=== PATIENT | female | born 1995 | race Caucasian/White ===

== ENCOUNTER 2020-07-19 01:18 | Emergency (ER) | payer OTHER, SELFPAY ==
[2020-07-19 01:21] VITALS: BP 137/92; PULSE 78; RESP 14; TEMP 36.6; O2SAT 100
[2020-07-19] MEDS: SODIUM CHLORIDE 0.9% IV 1,000 ML 999 ML IV CONT (02:03)
--- NOTE | 2020-07-19 02:11 | ED.GENADULT ---
HPI - General Adult General Chief complaint: Abdominal Pain Stated complaint: increased bleeding Time Seen by Provider: 07/19/20 01:49 History of Present Illness HPI narrative: Patient is a 25-year-old female who presents the emergency department with chief complaint of vaginal bleeding. Patient reports that she is less than 5 weeks and had a blood test done by her TOOLING ENGINEER that showed her quantitative test being very low. They did not perform an ultrasound due to her levels being below with a discernible number for ultrasound. The patient states that she has had more bleeding and has passed some clots is going through approximately 1 pad per hour tonight she noticed her cramping was a little worse and she also felt a little lightheaded. The patient reports this is her second and she is Rh+. Related Data Allergies Allergy/AdvReac Type Severity Reaction Status Date / Time metronidazole Allergy Intermediate SEVERE Verified 10/13/18 09:00 VOMITING Review of Systems Review of Systems: Narrative: A 10 system review of systems was completed on the patient and is negative except for what is stated in the HPI. Nursing and ancillary documentation was reviewed. PMFSH Comments Patient has past medical history of 1 prior that was carried to term Social history the patient denies illicit drug use Exam Narrative: Exam Narrative: GENERAL: Well-appearing, well-nourished, and in no acute distress. HEAD: Normocephalic, atraumatic. EYES: PERRLA and EOMI. ENT: Nares clear, no rhinorrhea or epistaxis. Mucous membranes moist. NECK: Supple. CHEST: Clear to auscultation. No respiratory distress. HEART: Regular rate and rhythm. No murmur heard. Normal peripheral pulses. ABDOMEN: Soft, mild tenderness to palpation in the low pelvis area, nondistended, normal active bowel sounds. EXTREMITIES: Normal range of motion. No edema. SKIN: Warm, dry, no rash. NEURO: No focal deficits. Alert and oriented x3. PSYCH: Normal mood and affect. Course Vital Signs Vital signs: Vital Signs Temperature 36.6 C 07/19/20 01:21 Pulse Rate 78 07/19/20 01:21 Respiratory Rate 14 07/19/20 01:21 Blood Pressure 137/92 H 07/19/20 01:21 Pulse Oximetry 100 07/19/20 01:21 Temperature 36.6 C 07/19/20 01:21 Pulse Rate 78 07/19/20 01:21 Respiratory Rate 14 07/19/20 01:21 Blood Pressure 137/92 H 07/19/20 01:21 Pulse Oximetry 100 07/19/20 01:21 Medical Decision Making Vital Signs Vital Signs: Vital Signs Temperature 36.6 C 07/19/20 01:21 Pulse Rate 78 07/19/20 01:21 Respiratory Rate 14 07/19/20 01:21 Blood Pressure 137/92 H 07/19/20 01:21 Pulse Oximetry 100 07/19/20 01:21 Temperature 36.6 C 07/19/20 01:21 Pulse Rate 78 07/19/20 01:21 Respiratory Rate 14 07/19/20 01:21 Blood Pressure 137/92 H 07/19/20 01:21 Pulse Oximetry 100 07/19/20 01:21 Lab Data Result diagrams: 07/19/20 01:55 07/19/20 01:55 Labs: Lab Results 07/19/20 07/19/20 07/19/20 Range/Units 01:55 01:55 01:55 WBC 11.5 H (4.5-10.0) K/mm3 RBC 4.92 (4.2-5.4) M/mm3 Hgb 14.6 (12.0-15.0) g/dL Hct 42.3 (37.0-47.0) % MCV 86.0 (80-100) fl MCH 29.7 (26-34) pg MCHC 34.5 (32-36) g/dl RDW 11.9 (11.5-14.5) % Plt Count 304 (150-375) k/mm3 MPV 9.7 (7.4-10.4) fl Immature Gran % (Auto) 0.4 (0-0.5) % Neut % (Auto) 68.9 (45.5-73.1) % Lymph % (Auto) 22.4 (18.3-44.2) % [place] % (Auto) 7.1 (2.6-8.5) % Eos % (Auto) 0.9 (0-4.4) % Baso % (Auto) 0.3 (0.2-1.2) % Lymph # (Auto) 2.57 (0.9-3.2) K/mm3 [place] # (Auto) 0.8 H (0.1-0.6) K/mm3 Eos # (Auto) 0.1 (0-0.3) K/mm3 Baso # (Auto) 0.0 (0.0-0.1) K/mm3 Abs Immat Gran (auto) 0.05 H (0.00-0.031) K/mm3 Absolute Neuts (auto) 7.9 H (1.3-6.7) K/mm3 Absolute Nucleated RBC 0.0 (0.0-0.012) K/mm3 Nucleated RBC %
[2020-07-19 02:12] LABS: Basophils Percent Auto 0.3 % (0.2-1.2); Eosinophils Absolute Auto 0.1 K/mm3 (0-0.3); Eosinophils Percent Auto 0.9 % (0-4.4); Hematocrit 42.3 % (37.0-47.0); Hemoglobin 14.6 g/dL (12.0-15.0); Immature Granulocyte Absolute 0.05 K/mm3 (0.00-0.031); Immature Granulocyte Percent A 0.4 % (0-0.5); Lymphocytes Absolute Auto 2.57 K/mm3 (0.9-3.2); Lymphocytes Percent Auto 22.4 % (18.3-44.2); Mean Corpuscular HGB Conc 34.5 g/dl (32-36); Mean Corpuscular Hemoglobin 29.7 pg (26-34); Mean Platelet Volume 9.7 fl (7.4-10.4); Monocytes Absolute Auto 0.8 K/mm3 (0.1-0.6); Monocytes Percent Auto 7.1 % (2.6-8.5); Neutrophils Absolute Auto 7.9 K/mm3 (1.3-6.7); Neutrophils Percent Auto 68.9 % (45.5-73.1); Platelet Count Result 304 k/mm3 (150-375); Red Blood Count 4.92 M/mm3 (4.2-5.4); Red Cell Distribution Width 11.9 % (11.5-14.5); White Blood Count 11.5 K/mm3 (4.5-10.0)
[2020-07-19 02:15] LABS: Alanine Aminotransferase 22 U/L (4-35); Albumin Level 4.4 g/dL (3.5-5.1); Alkaline Phosphatase 61 U/L (38-126); Anion Gap 9 mmol/L (8-16); Aspartate Amino Transferase 27 U/L (14-36); Bilirubin,Total 0.3 mg/dL (0.2-1.3); Blood Urea Nitrogen 8 mg/dL (7-17); Calcium 8.9 mg/dL (8.4-10.2); Carbon Dioxide 30 mmol/L (22-30); Chloride 100 mmol/L (98-107); Estimated CRCL calculation 85 ml/min; Estimated Glomerular Filt Rate > 60; Glucose 108 mg/dL (65-105); Potassium 3.7 mmol/L (3.4-5.0); Sodium 139 mmol/L (137-145)
[2020-07-19 02:31] LABS: Beta HCG Quantitative 10.28 mIU/ML
[2020-07-19 03:12] VITALS: BP 129/86; PULSE 73; RESP 16; O2SAT 100
== END 2020-07-19 03:45 | disposition home or self-care (01) ==
PROVIDERS: Emergency Provider Emergency Medicine
DX: O20.0 Threatened abortion (principal); Z3A.01 Less than 8 weeks gestation of pregnancy
CPT/HCPCS: 36415; 80053; 84702; 85025; 85461; 96360; 99283; J7030

== ENCOUNTER 2020-07-25 12:37 | Outpatient (RCR) | payer OTHER, SELFPAY ==
[2020-07-17 12:56] LABS: Beta HCG Quantitative 21.23 mIU/ML
[2020-07-25 13:53] LABS: Beta HCG Quantitative < 2.39 mIU/ML
== END 2020-10-15 23:59 | disposition home or self-care (01) ==
LOC: ANHLAB 12:37
PROVIDERS: Visit Provider Obstetrics & Gynecology
DX: O20.0 Threatened abortion (principal); Z3A.00 Weeks of gestation of pregnancy not specified
CPT/HCPCS: 36415; 84702

== ENCOUNTER 2021-01-24 16:36 | Outpatient (CLI) | payer OTHER, SELFPAY ==
[2021-01-24 17:07] LABS: Basophils Absolute Auto 0.1 K/mm3 (0.0-0.1); Basophils Percent Auto 0.5 % (0.2-1.2); Eosinophils Absolute Auto 0.1 K/mm3 (0-0.3); Eosinophils Percent Auto 0.6 % (0-4.4); Hematocrit 40.8 % (37.0-47.0); Hemoglobin 13.6 g/dL (12.0-15.0); Immature Granulocyte Absolute 0.07 K/mm3 (0.00-0.031); Immature Granulocyte Percent A 0.6 % (0-0.5); Lymphocytes Absolute Auto 2.99 K/mm3 (0.9-3.2); Lymphocytes Percent Auto 27.7 % (18.3-44.2); Mean Corpuscular HGB Conc 33.3 g/dl (32-36); Mean Corpuscular Hemoglobin 28.8 pg (26-34); Mean Corpuscular Volume 86.3 fl (80-100); Monocytes Absolute Auto 0.6 K/mm3 (0.1-0.6); Monocytes Percent Auto 5.9 % (2.6-8.5); Neutrophils Percent Auto 64.7 % (45.5-73.1); Platelet Count Result 282 k/mm3 (150-375); Red Blood Count 4.73 M/mm3 (4.2-5.4); White Blood Count 10.8 K/mm3 (4.5-10.0)
[2021-01-24 17:18] LABS: Alanine Aminotransferase 12 U/L (4-35); Albumin Level 4.6 g/dL (3.5-5.1); Alkaline Phosphatase 66 U/L (38-126); Anion Gap 8 mmol/L (8-16); Aspartate Amino Transferase 21 U/L (14-36); Bilirubin,Total 0.4 mg/dL (0.2-1.3); Blood Urea Nitrogen 12 mg/dL (7-17); Carbon Dioxide 28 mmol/L (22-30); Chloride 102 mmol/L (98-107); Estimated Glomerular Filt Rate > 60; Glucose 85 mg/dL (65-105); Potassium 3.6 mmol/L (3.4-5.0); Sodium 138 mmol/L (137-145)
[2021-01-24 17:47] LABS: Erythrocyte Sedimentation Rate 12 mm/hr (0-20)
[2021-01-24 17:48] LABS: Thyroid Stimulating Hormone 0.905 uIU/mL (0.465-4.680)
[2021-01-24 18:20] LABS: Vitamin D 25 Hydroxy 37.8 ng/mL
[2021-01-24 18:23] LABS: Folic Acid 14.3 ng/mL (2.76->20)
== END 2021-01-24 16:37 | disposition home or self-care (01) ==
LOC: ANHLAB 16:38
PROVIDERS: PCP Family Medicine; Visit Provider Family Medicine
DX: R53.83 Other fatigue (principal)
CPT/HCPCS: 36415; 80053; 82306; 82607; 82746; 84443; 85025; 85652; 86038

== ENCOUNTER 2022-01-09 15:25 | Outpatient (CLI) | payer OTHER, SELFPAY ==
--- NOTE | ~2022-01-09 | US_ITS ---
EXAMINATION: US renal BI DATE: 01/09/2022 15:46 INDICATION: FLANK PAIN TECHNIQUE: Multiple grayscale and Doppler ultrasound images of the kidneys were obtained. COMPARISON: CT abdomen pelvis 01/01/2018. FINDINGS: The right kidney measures 10.8 x 4.7 x 4.2 cm. The left kidney measures 10.5 x 5.0 x 5.1 cm. The kidn eys demonstrate normal parenchymal echogenicity.No sonographic evidence of nephrolithiasis. No mass. No hydronephrosis. The bladder is nondistended. IMPRESSION: 1. Normal renal sonogram findings. Reviewed, dictated and finalized at location K.
== END 2022-01-09 15:26 | disposition home or self-care (01) ==
PROVIDERS: PCP Family Medicine; Visit Provider Advanced Practice Midwife
DX: R10.9 Unspecified abdominal pain (principal)
CPT/HCPCS: 76775

== ENCOUNTER 2022-01-28 05:16 | Emergency (ER) | payer OTHER, SELFPAY ==
[2022-01-28 05:18] VITALS: BP 130/82; PULSE 82; RESP 16; TEMP 36.2; O2SAT 100
[2022-01-28 05:28] VITALS: BP 139/87; PULSE 85; RESP 16; O2SAT 100
[2022-01-28] MEDS: diphenhydrAMINE HCl INJ 50 MG/ML VIAL 25 MG IV PUSH (05:34)
[2022-01-28] MEDS: PYRIDOXINE HCL 100 MG/ML VIAL (*SPC) 50 MG IV PUSH (05:35)
[2022-01-28] MEDS: DEXTROSE 5%/LACTATED RINGERS 1,000 ML 999 ML IV CONT (05:35)
[2022-01-28 05:39] LABS: Basophils Absolute Auto 0.1 K/mm3 (0.0-0.1); Basophils Percent Auto 0.4 % (0.2-1.2); Eosinophils Absolute Auto 0.1 K/mm3 (0-0.3); Eosinophils Percent Auto 0.4 % (0-4.4); Hemoglobin 13.8 g/dL (12.0-15.0); Immature Granulocyte Absolute 0.09 K/mm3 (0.00-0.031); Immature Granulocyte Percent A 0.7 % (0-0.5); Lymphocytes Absolute Auto 2.37 K/mm3 (0.9-3.2); Lymphocytes Percent Auto 17.7 % (18.3-44.2); Mean Corpuscular HGB Conc 34.5 g/dl (32-36); Mean Corpuscular Hemoglobin 29.5 pg (26-34); Mean Corpuscular Volume 85.5 fl (80-100); Mean Platelet Volume 10.3 fl (7.4-10.4); Monocytes Absolute Auto 1.2 K/mm3 (0.1-0.6); Neutrophils Absolute Auto 9.6 K/mm3 (1.3-6.7); Neutrophils Percent Auto 71.8 % (45.5-73.1); Platelet Count Result 278 k/mm3 (150-375); Red Blood Count 4.68 M/mm3 (4.2-5.4); Red Cell Distribution Width 12.9 % (11.5-14.5); White Blood Count 13.4 K/mm3 (4.5-10.0)
[2022-01-28 05:40] LABS: Appearance Urine Clear (Clear); Bilirubin Urine 1+ (Negative); Blood Urine Trace-lysed (Negative); Color Urine Yellow (Yellow); Glucose Urine UA Negative (Negative); Ketones Urine Negative (Negative); Leukocyte Esterase Ur 3+ LEU/UL (Negative); Nitrate Urine Negative (Negative); Protein Urine Trace mg/dL (Negative); Specific Grav Ur 1.025 (1.001-1.035); Urobilinogen Urine 0.2 mg/dL (<2.0)
[2022-01-28 05:44] LABS: Add Urine Microscopic? YES; Bacteria Urine Trace /hpf; Mucus Urine Moderate /lpf; Squamous Epithelial Cell Urine Many /hpf (Few); WBC Urine 31-50 /hpf
[2022-01-28 05:50] LABS: Alanine Aminotransferase 26 U/L (6-35); Albumin Level 4.4 g/dL (3.5-5.1); Alkaline Phosphatase 60 U/L (38-126); Anion Gap 6 mmol/L (8-16); Aspartate Amino Transferase 17 U/L (14-36); Bilirubin,Total 0.2 mg/dL (0.2-1.3); Blood Urea Nitrogen 8 mg/dL (7-17); Calcium 8.6 mg/dL (8.4-10.2); Carbon Dioxide 24 mmol/L (22-30); Chloride 104 mmol/L (98-107); Estimated CRCL calculation 97 ml/min; Estimated Glomerular Filt Rate > 60; Glucose 110 mg/dL (65-110); Lipase 79 U/L (23-300); Potassium 3.6 mmol/L (3.4-5.0); Sodium 134 mmol/L (137-145)
--- NOTE | 2022-01-28 05:59 | ED.NAVMDI ---
HPI - Nausea/Vomiting/Diarrhea General Chief complaint: Nausea/Vomiting/Diarrhea <Soren Velazquez MD - Last Filed: 01/28/22 19:00> Stated complaint: 8 weeks preg, N/V and cramping <Soren Velazquez MD - Last Filed: 01/28/22 19:00> Time Seen by Provider: 01/28/22 05:22 <Soren Velazquez MD - Last Filed: 01/28/22 19:00> Source: patient <Soren Velazquez MD - Last Filed: 01/28/22 19:00> History of Present Illness HPI Narrative: Patient is G3, P1 early miscarriage presents with nausea vomiting cramping and back pain. For she is having cramping back pain throughout her she feels like her abdominal cramping slightly worse but feels its related to her vomiting. Reports has had nausea and vomiting over the past 48 hours and has had a difficult time keeping fluids down. She has not attempted any medications but since her symptoms were not improving she came to the ER for further evaluation. She denies any major changes in weight she denies any vaginal bleeding she denies any lightheaded dizziness she denies any urinary symptoms. She has any chest pain fevers or known sick contacts denies any recent travel outside the area. Emesis is not dark and is without blood <Soren Velazquez MD - Last Filed: 01/28/22 19:00> Related Data Allergies/Adverse reactions: Allergies Allergy/AdvReac Type Severity Reaction Status Date / Time metronidazole Allergy Intermediate SEVERE Verified 01/28/22 05:31 VOMITING <Soren Velazquez MD - Last Filed: 01/28/22 19:00> Review of Systems Review of Systems: CONSTITUTIONAL: Denies fever, chills, or sweats. EYES: Denies visual changes, redness, or discharge. ENT: Denies rhinorrhea, congestion, sore throat, or otalgia. CARDIOVASCULAR: Denies chest pain, palpitations, or edema. RESPIRATORY: Denies cough or dyspnea. GASTROINTESTINAL: Nausea vomiting abdominal pain GENITOURINARY: Denies dysuria or hematuria. SKIN: Denies rash or itching. MUSCULOSKELETAL: Denies back pain, joint pain, or myalgia. NEUROLOGIC: Denies headache, numbness, dizziness, or weakness. PSYCHIATRIC: Denies anxiety or depression. <Soren Velazquez MD - Last Filed: 01/28/22 19:00> All systems reviewed & are unremarkable except as noted in HPI and below <Soren Velazquez MD - Last Filed: 01/28/22 19:00> Exam Narrative: GENERAL: Well-appearing, well-nourished, and in no acute distress. HEAD: Normocephalic, atraumatic. EYES: PERRLA and EOMI. ENT: Nares clear, no rhinorrhea or epistaxis. Mucous membranes moist. NECK: Supple. No masses. No JVD ABDOMEN: Minimal pain with deep palpation of lower abdomen no rebound or guarding soft, nondistended EXTREMITIES: Normal range of motion. No edema. SKIN: Warm, dry, no rash. NEURO: No focal deficits. Alert and oriented x3. PSYCH: Normal mood and affect. <Soren Velazquez MD - Last Filed: 01/28/22 19:00> Course Reevaluation(s) Reevaluation #1: On reevaluation patient had repeat episode of emesis ordered additional antiemetics and patient was signed out to Dr. Gilmore pending reevaluation <Soren Velazquez MD - Last Filed: 01/28/22 19:00> Date: 01/28/22 <Soren Velazquez MD - Last Filed: 01/28/22 19:00> Time: 07:25 <Soren Velazquez MD - Last Filed: 01/28/22 19:00> Consultations Consultation #1: Patient signed out to <Soren Velazquez MD - Last Filed: 01/28/22 19:00> Vital Signs Vital signs: Vital Signs Temperature 36.2 C L 01/28/22 05:18 Pulse Rate 82 01/28/22 05:18 Respiratory Rate 16 01/28/22 05:18 Blood Pressure 130/82 01/28/22 05:18 Pulse Oximetry 100 01/28/22 05:18 Oxygen Delivery Room Air 01/28/22 05:18 Temperature 36.2 C L 01/28/22 05:18 Pulse Rate 88 01/28/22 08:13 Respiratory Rate 18 01/28/22 08:13 Blood Pressure 126/77 01/28/22 08:13 Pulse Oximetry 99 01/28/22 08:13 Oxygen Delivery Room Air 01/28/22 05:18 <Soren Velazquez MD - Last Filed: 01/18
[2022-01-28] MEDS: CEPHALEXIN 500 MG CAPSULE PO (07:02)
[2022-01-28] MEDS: METOCLOPRAMIDE HCL INJ 10 MG/2 ML VIAL IV PUSH (07:07)
[2022-01-28 07:11] VITALS: BP 124/81; PULSE 92; RESP 16; O2SAT 100
--- NOTE | 2022-01-28 07:35 | PC.NURSE ---
Pt resting comfortably. Nausea has resolved with Reglan. Fluids infusing. No requests.
--- NOTE | 2022-01-28 07:38 | PC.NURSE ---
Report from Anjum PEARL. Pt stable resting comfortably.
[2022-01-28 07:40] VITALS: BP 124/81; PULSE 66; O2SAT 100
[2022-01-28 08:13] VITALS: BP 126/77; PULSE 88; RESP 18; O2SAT 99
== END 2022-01-28 09:40 | disposition home or self-care (01) ==
PROVIDERS: Emergency Medicine; Emergency Provider Emergency Medicine; PCP Family Medicine
DX: O23.41 Unspecified infection of urinary tract in pregnancy, first trimester (principal); O21.9 Vomiting of pregnancy, unspecified; Z3A.08 8 weeks gestation of pregnancy
CPT/HCPCS: 36415; 80053; 81001; 83690; 85025; 87086; 87088; 96361; 96374; 96375; 99284; A9270; J1200; J2765; J3415; J7121

== ENCOUNTER 2022-03-06 15:17 | Emergency (ER) | payer OTHER, SELFPAY ==
[2022-03-06] VITALS (18 sets, daily range): BP systolic 119–143; BP diastolic 67–92; PULSE 74–125; RESP 14–25; TEMP 36.8; O2SAT 98–100
--- NOTE | ~2022-03-06 | NM_ITS ---
EXAMINATION: NM pulmonary perfusion DATE: 03/06/2022 19:04 INDICATION: Shortness of breath. TECHNIQUE: 4.2 mCi Tc-99m MAA was administered intravenously for perfusion images. Scintigraphic onesimo ges of the chest were obtained. COMPARISON: Chest single view 03/06/2022 FINDINGS: Perfusion images show no defects. IMPRESSION: 1. Normal perfusion. Pulmonary embolism absent. Reviewed, dictated and finalized at location A.
--- NOTE | ~2022-03-06 | CT_ITS ---
EXAMINATION: CT brain wo con DATE: 03/06/2022 17:46 INDICATION: Headache. Syncope. TECHNIQUE: Computed tomography (CT) of the head was performed without intravenous contrast. The mA wa s adjusted according to patient size. Iterative reconstruction technique was employed. The dose-lengt h product was 605.33 mGy-cm. COMPARISON: Head CT 06/06/2016 FINDINGS: There is no intracranial hemorrhage, acute infarction, or abnormal intracranial mass lesion . The ventricles are normal in size. The orbits are normal. The paranasal sinuses are clear. The mast oid air cells are normal. IMPRESSION: 1. Normal brain. Reviewed, dictated and finalized at location A. IMPRESSION: 1. Normal brain.
--- NOTE | ~2022-03-06 | XR_ITS ---
EXAMINATION: XR chest 1V portable INDICATION: Transient alteration of awareness TECHNIQUE: Portable AP chest at 1708 hours COMPARISON: 07/01/2016 FINDINGS: The lungs are free of acute opacities. No pleural effusion or pneumothorax. The cardiomedia stinal silhouette is normal. The visualized bones and soft tissues are unremarkable. IMPRESSION: 1. No acute cardiopulmonary abnormality. Reviewed, dictated and finalized at location A.
--- NOTE | 2022-03-06 15:18 | ECG_ITS ---
Measurements Intervals [place] Rate: 75 P: 60 [place]: 125 QRS: 72 QRSD: 78 T: 57 QT: 373 QTc: 418 Interpretive Statements SINUS RHYTHM NORMAL ECG NO PREVIOUS ECG AVAILABLE FOR COMPARISON Electronically Signed On 03-07-2022 9:32:52 CDT by Silvano Caldwell M.D.
[2022-03-06 15:40] LABS: Basophils Percent Auto 0.3 % (0.2-1.2); Eosinophils Absolute Auto 0.1 K/mm3 (0-0.3); Eosinophils Percent Auto 0.6 % (0-4.4); Hematocrit 37.1 % (37.0-47.0); Immature Granulocyte Percent A 0.8 % (0-0.5); Lymphocytes Absolute Auto 2.67 K/mm3 (0.9-3.2); Lymphocytes Percent Auto 20.4 % (18.3-44.2); Mean Corpuscular Hemoglobin 29.8 pg (26-34); Mean Corpuscular Volume 85.1 fl (80-100); Mean Platelet Volume 10.5 fl (7.4-10.4); Monocytes Absolute Auto 0.8 K/mm3 (0.1-0.6); Neutrophils Absolute Auto 9.4 K/mm3 (1.3-6.7); Neutrophils Percent Auto 71.9 % (45.5-73.1); Platelet Count Result 270 k/mm3 (150-375); Red Blood Count 4.36 M/mm3 (4.2-5.4); Red Cell Distribution Width 12.3 % (11.5-14.5); White Blood Count 13.1 K/mm3 (4.5-10.0)
[2022-03-06 15:51] LABS: Alanine Aminotransferase 13 U/L (6-35); Albumin Level 3.9 g/dL (3.5-5.1); Alkaline Phosphatase 53 U/L (38-126); Anion Gap 8 mmol/L (8-16); Aspartate Amino Transferase 17 U/L (14-36); Bilirubin,Total 0.2 mg/dL (0.2-1.3); Blood Urea Nitrogen 8 mg/dL (7-17); Calcium 8.4 mg/dL (8.4-10.2); Carbon Dioxide 28 mmol/L (22-30); Chloride 99 mmol/L (98-107); Estimated CRCL calculation 114 ml/min; Estimated Glomerular Filt Rate > 60; Glucose 86 mg/dL (65-110); Potassium 3.7 mmol/L (3.4-5.0); Sodium 135 mmol/L (137-145)
[2022-03-06 17:14] LABS: Magnesium 1.6 mg/dL (1.6-2.3)
[2022-03-06 17:23] LABS: Appearance Urine Cloudy (Clear); Bilirubin Urine Negative (Negative); Blood Urine Negative (Negative); Color Urine Yellow (Yellow); Glucose Urine UA Negative (Negative); Ketones Urine Negative (Negative); Leukocyte Esterase Ur 1+ LEU/UL (Negative); Nitrate Urine Negative (Negative); Protein Urine Negative (Negative); Urobilinogen Urine 0.2 mg/dL (<2.0)
[2022-03-06 17:24] LABS: Troponin I < 0.012 ng/mL (0.000-0.034)
--- NOTE | 2022-03-06 17:26 | ED.SYNCOPE ---
HPI - Syncope General Chief Complaint: Syncope Stated Complaint: syncopal x 2 13 weeks preg Time Seen by Provider: 03/06/22 16:34 Source: patient and RN notes reviewed Mode of arrival: ambulatory Limitations: no limitations History of Present Illness HPI narrative: This is a 26 year old female approximately 13 weeks GA who present for evaluation of syncopal episode. She states today she stood up and she walked to the bathroom. She developed dizziness while walking, and she reports heart was pounding in her chest. She states she frequently feels like lightheaded with heart pounding when getting up and walking. She states today she passed out during this episode. She denies chest pain, abdominal pain, vaginal bleeding. She reports chronic nausea with this so she is not eating much. she has been trying to increase her fluid intake under her OBGYN Dr. Piña's instruction. She also states 2 months ago she was sitting at her desk when she felt hot all over and became lightheaded and passed out. She denies recent vomiting or diarrhea. She denies family history of syncope. She reports headache after passing out today. Related Data Allergies Allergy/AdvReac Type Severity Reaction Status Date / Time metronidazole Allergy Intermediate SEVERE Verified 03/06/22 15:37 VOMITING Review of Systems Review of Systems: All systems reviewed & are unremarkable except as noted in HPI and below Constitutional: Constitutional: Denies chills, Denies fatigue, Denies fever(s) and Denies weakness Cardiovascular: Cardiovascular: Denies chest pain, Reports rapid heart rate and Denies radiating jaw, neck or arm pain Respiratory: Respiratory: Denies chest congestion, Denies cough and Denies dyspnea Gastrointestinal: Gastrointestinal: Denies abdominal pain, Reports nausea and Denies vomiting Genitourinary: Genitourinary: Denies abnormal vaginal bleeding and Denies pelvic pain Musculoskeletal: Musculoskeletal: Denies back pain and Denies myalgias Neurologic: Reports syncope and Reports headache(s) [facility]LY [facility], [facility] Past Medical History Medical History (Updated 03/06/22 @ 21:15 by Jenna Cheney MD) Depression Surgical History Surgical History (Updated 03/06/22 @ 17:35 by Jenna Cheney MD) No pertinent past surgical history Social History Social History (Updated 03/06/22 @ 17:35 by Jenna Cheney MD) Smoking status: Never smoker Exam Narrative: GENERAL: Well-appearing, well-nourished, and in no acute distress. HEAD: Normocephalic, atraumatic EYES: PERRLA and EOMI, conjunctiva clear without discharge EARS: TM's clear bilaterally without erythema or dullness NOSE: Nares clear, no rhinorrhea or epistaxis THROAT:Mucous membranes moist, Oropharynx normal without erythema, exudate, peritonsillar swelling or fluctuance NECK: Supple, without lymphadenopathy or mass RESPIRATORY: No respiratory distress, Airway patent, Respirations non-labored, Clear to auscultation without rales, rhonchi or wheeze HEART: Regular rate and rhythm. No murmur heard. Normal peripheral pulses. ABDOMEN: Soft, nontender, nondistended, normal active bowel sounds. No masses. No rebound or guarding, No organomegaly. EXTREMITIES: No edema, normal strength with full range of motion. SKIN: Warm, dry, normal color without rash NEURO: Alert and oriented x3. CN 2-12 grossly intact. No focal deficits. PSYCH: Normal mood and affect. Course Reevaluation(s) Reevaluation #1: Patient presented with syncopal episode that at this time does not seem to be due to an arrythmia. No PE. She does have some signs of dehydration. Bedside US shows good movement and Heartones 150s. She will be follow up with OBGYN Date: 03/06/22 Time: 21:11 Reevaluation #2: I called patient due to abnormal ua. Culture has been sent. Patient states she is on antibiotics so she will continue those and follow up with OB Date: 03/06/22 Time: 22:29 Vital Si
[2022-03-06 17:27] LABS: Bacteria Urine Trace /hpf; Mucus Urine Rare /lpf; RBC Urine 0-2 /hpf (0-2); Squamous Epithelial Cell Urine Many /hpf (Few)
[2022-03-06 17:28] LABS: Add Urine Microscopic? YES
[2022-03-06] MEDS: LACTATED RINGERS 1,000 ML 999 ML IV CONT ×2 (17:28→20:00)
== END 2022-03-06 21:39 | disposition home or self-care (01) ==
PROVIDERS: Emergency Medicine; Emergency Provider General Practice; PCP Obstetrics & Gynecology
DX: O26.891 Other specified pregnancy related conditions, first trimester (principal); R55 Syncope and collapse; O99.281 Endocrine, nutritional and metabolic diseases complicating pregnancy, first trimester; E86.0 Dehydration; Z3A.13 13 weeks gestation of pregnancy
CPT/HCPCS: 36415; 70450; 71045; 78580; 80053; 81001; 83735; 84484; 85025; 87086; 93005; 96360; 96361; 99284; A9540; J7120

== ENCOUNTER 2022-03-14 10:47 | Outpatient (CLI) | payer OTHER, SELFPAY ==
--- NOTE | 2022-03-18 16:00 | WPDHOLTEREM ---
Holter/Event Monitor Holter/Event Monitor Date of procedure: 03/14/22 Holter/Event Procedure: 24 Hr Holter Monitor Indications: Palpitations Conclusion: 1. 24 hour holter monitor on 03/14/22. 2. Underlying rhythm is sinus rhythm. HR range 51-158 bpm; average HR 83 bpm. 3. There are 7 premature supraventricular complexes. No supraventricular tachycardia. 4. There is 1 premature ventricular complex. No ventricular tachycardia. 5. No sinoatrial or atrioventricular blocks. No significant pauses greater than 2 seconds. 6. Patient reports symptoms of shortness of breath, chest pain, head pounding which demonstrate 66-85 bpm.
== END 2022-03-14 10:48 | disposition home or self-care (01) ==
PROVIDERS: PCP Obstetrics & Gynecology
DX: R00.2 Palpitations (principal)
CPT/HCPCS: 93225; 93226

== ENCOUNTER 2022-07-19 18:04 | Observation (INO) | payer OTHER, SELFPAY ==
--- NOTE | 2022-07-19 18:44 | OBADM ---
This patient, Armando Herndon, admitted to the OB room Labor/Delivery/Recovery 118 for observation. Patient/family oriented to hospital policies and general routines including ID bracelet, bed and alarms, visiting hours, pain management, procedures, bathroom and other care routines, personal items, smoking policy, room service/diet, and visiting hours. Patient/Family are encouraged to report perceived risks to care and to ask questions if they do not understand what they are told or what they should do.
--- NOTE | 2022-07-19 18:44 | PC.NURSE ---
Updated Vivian Upton CNM of patient arrival to OB unit. Patient states she was evaluated at a different hospital last night for dehydration r/t nausea/emesis. Patient states she is not presently experiencing nausea/emesis. Patient states she is concerned because the hospital she was evaluated at did not monitor FHT while she was being evaluated and reports movements are decreased from what the typical movements have been. FHT reactive currently and active movements were palpated, audible and patient states baby started moving more upon arrival to unit. There is some uterine irritability present with rare contraction. Patient states she did take a dose of procardia at 1345. Orders received from Vivian Upton CNM.
[2022-07-19] MEDS: NIFEdipine 10 MG CAPSULE PO (19:03)
[2022-07-19 19:05] VITALS: BP 121/78; PULSE 96
[2022-07-19 19:14] LABS: Add Urine Microscopic? YES; Appearance Urine Clear (Clear); Bilirubin Urine Negative (Negative); Blood Urine Negative (Negative); Color Urine Yellow (Yellow); Glucose Urine UA Negative (Negative); Ketones Urine Trace mg/dL (Negative); Leukocyte Esterase Ur 1+ LEU/UL (Negative); Nitrate Urine Negative (Negative); Protein Urine Negative (Negative); Specific Grav Ur 1.015 (1.001-1.035); Urobilinogen Urine 0.2 mg/dL (<2.0); pH Urine 5.5 (5.0-9.0)
[2022-07-19 19:15] VITALS: BP 127/86; PULSE 98
[2022-07-19 19:24] LABS: Bacteria Urine Trace /hpf; Mucus Urine Rare /lpf; Squamous Epithelial Cell Urine Moderate /hpf (Few)
[2022-07-19 19:30] VITALS: BP 114/71; PULSE 119
[2022-07-19 19:33] VITALS: BP 127/65; PULSE 119
--- NOTE | 2022-07-19 19:35 | PC.NURSE ---
Updated Vivian Upton CNM of UA results. Patient states she still feels small cramping but denies contractions. Uterine irritability is present. Orders received.
[2022-07-19] MEDS: DEXTROSE 5%/LACTATED RINGERS 1,000 ML 999 ML IV CONT (19:52)
--- NOTE | 2022-07-19 21:30 | PC.NURSE ---
Discharge instructions reviewed with patient. Patient states understanding of discharge instructions. labor precautions and kick counts reviewed with patient and educational handout provided. Patient states understanding and denies questions. Patient is agreeable to discharge.
--- NOTE | 2022-07-24 07:38 | P.PNOB_ITS ---
OB - Triage/Final Diagnosis Visit Information Date of evaluation: 07/19/22 Reason for evaluation: decreased movement and other (dehydration) Comments/Additional reasons for admission: I have assessed the risk for this patient, Armando Herndon, and determined that she would benefit from observation care. Evaluation Laboratory results: Laboratory Tests 07/19/22 19:07 Urine Color Yellow Urine Appearance Clear Urine pH 5.5 Ur Specific [place] 1.015 Urine Protein Negative Urine Glucose (UA) Negative Urine Ketones Trace Ur Blood (Man) Negative Urine Nitrate Negative Urine Bilirubin Negative Urine Urobilinogen 0.2 Leukocyte Esterase Rfl 1+ H Urine RBC 3-5 H Urine WBC 4-6 H Ur Squamous Epith Cells Moderate H Urine Bacteria Trace Urine Mucus Rare
== END 2022-07-19 21:30 | disposition home or self-care (01) ==
PROVIDERS: Admitting Provider Obstetrics & Gynecology; Referring Provider Advanced Practice Midwife; Visit Provider Obstetrics & Gynecology
DX: O36.8130 Decreased fetal movements, third trimester, not applicable or unspecified (principal); O26.893 Other specified pregnancy related conditions, third trimester; E86.0 Dehydration; Z3A.32 32 weeks gestation of pregnancy
CPT/HCPCS: 59025; 81001; A9270; G0378; G0379; J7121

== ENCOUNTER 2022-09-02 04:56 | Inpatient (IN) | payer OTHER, SELFPAY ==
[2022-09-02] VITALS (68 sets, daily range): BP systolic 90–220; BP diastolic 45–195; PULSE 70–286; RESP 16–18; TEMP 36.4–37.2; O2SAT 92–100; BMI 26.9
--- NOTE | 2022-09-02 05:20 | LDADM ---
This patient, Armando Herndon, was admitted to Labor/Delivery/Recovery 108 on 09/02/22 at 04:56. Plans for labor, pain management and were discussed with patient. Patient/family oriented to hospital policies and general routines including ID bracelet, bed and alarms, visiting hours, pain management, procedures, bathroom and other care routines, personal items, smoking policy, room service/diet and guest tray routines, security routines, and visiting hours. Patient/Family are encouraged to report perceived risks to care and to ask questions if they do not understand what they are told or what they should do. See OBIX for further documentation.
[2022-09-02 05:45] LABS: Basophils Absolute Auto 0.1 K/mm3 (0.0-0.1); Basophils Percent Auto 0.4 % (0.2-1.2); Eosinophils Absolute Auto 0.1 K/mm3 (0-0.3); Eosinophils Percent Auto 0.4 % (0-4.4); Hematocrit 35.1 % (37.0-47.0); Hemoglobin 11.4 g/dL (12.0-15.0); Immature Granulocyte Absolute 0.21 K/mm3 (0.00-0.031); Immature Granulocyte Percent A 1.9 % (0-0.5); Lymphocytes Absolute Auto 2.59 K/mm3 (0.9-3.2); Lymphocytes Percent Auto 23.2 % (18.3-44.2); Mean Corpuscular HGB Conc 32.5 g/dl (32-36); Mean Corpuscular Hemoglobin 28.1 pg (26-34); Mean Corpuscular Volume 86.7 fl (80-100); Monocytes Absolute Auto 0.8 K/mm3 (0.1-0.6); Monocytes Percent Auto 6.8 % (2.6-8.5); Neutrophils Absolute Auto 7.5 K/mm3 (1.3-6.7); Neutrophils Percent Auto 67.3 % (45.5-73.1); Platelet Count Result 174 k/mm3 (150-375); Red Blood Count 4.05 M/mm3 (4.2-5.4); White Blood Count 11.1 K/mm3 (4.5-10.0)
[2022-09-02] MEDS: LACTATED RINGERS 1,000 ML 125 ML IV CONT ×2 (05:56→11:31)
[2022-09-02] MEDS: OXYTOCIN 30 UNITS/NS 500 ML 30 UNITS/500 ML BAG IV CONT (05:56)
[2022-09-02] MEDS: fentaNYL CITRATE INJ (*CRX) 100 MCG/2 ML VIAL 50 MCG IV PUSH (08:00)
--- NOTE | 2022-09-02 08:10 | WPDOBADMIT ---
Obstetrics - Admit Note Admission Note: record reviewed. No pertinent additions to the history and/or any subsequent changes in the physical findings that are not consistent with the expected course of the were found. Elective IOL, SVE 3cm/70/-2, attempted AROM, will monitor for fluid, anticipate vaginal delivery Additions to the history and/or subsequent changes in the physical findings follow. None.
--- NOTE | 2022-09-02 08:21 | WPDANESEPP ---
Anes - Eval Pre Procedure Procedure: Labor Epidural Date/Time: 09/02/22 08:21 Surgeon: James Preop Diagnosis: Pain c contractions Pre Op Diagnosis: iol Patient Data Age: 27 Gender: F Height: 1.6 m Weight: 69 kg Last Vital Signs Temp 36.6 C 09/02/22 06:00 Resp 16 09/02/22 06:00 Pulse Ox 98 09/02/22 08:21 O2 Del Method Room Air 09/02/22 05:15 Allergies Allergy/AdvReac Type Severity Reaction Status Date / Time metronidazole Allergy Intermediate SEVERE Verified 03/06/22 15:37 VOMITING Home Medications Medication Instructions Recorded Confirmed Type ondansetron 4 mg disintegrating 4 mg PO Q8H #10 tabs 01/28/22 09/02/22 Rx tablet Laboratory Tests 09/02/22 09/02/22 09/02/22 05:16 05:16 05:16 WBC 11.1 K/mm3 H K/mm3 (4.5-10.0) RBC 4.05 M/mm3 L M/mm3 (4.2-5.4) Hgb 11.4 g/dL L g/dL (12.0-15.0) Hct 35.1 % L % (37.0-47.0) MCV 86.7 fl fl (80-100) MCH 28.1 pg pg (26-34) MCHC 32.5 g/dl g/dl (32-36) RDW 15.0 % H % (11.5-14.5) Plt Count 174 k/mm3 k/mm3 (150-375) MPV 12.0 fl H fl (7.4-10.4) Immature Gran % (Auto) 1.9 % H % (0-0.5) Neut % (Auto) 67.3 % % (45.5-73.1) Lymph % (Auto) 23.2 % % (18.3-44.2) [place] % (Auto) 6.8 % % (2.6-8.5) Eos % (Auto) 0.4 % % (0-4.4) Baso % (Auto) 0.4 % % (0.2-1.2) Lymph # (Auto) 2.59 K/mm3 K/mm3 (0.9-3.2) [place] # (Auto) 0.8 K/mm3 H K/mm3 (0.1-0.6) Eos # (Auto) 0.1 K/mm3 K/mm3 (0-0.3) Baso # (Auto) 0.1 K/mm3 K/mm3 (0.0-0.1) Abs Immat Gran (auto) 0.21 K/mm3 H K/mm3 (0.00-0.031) Absolute Neuts (auto) 7.5 K/mm3 H K/mm3 (1.3-6.7) Absolute Nucleated RBC 0.0 K/mm3 K/mm3 (0.0-0.012) Nucleated RBC % 0.0 % % (0.0-0.2) RPR Pending Blood Type O Positive Antibody Screen Negative Patient hx anesthesia problems: none Family hx anesthesia problems: none Results Review: All pre-operative results and documents have been reviewed as part of the pre-operative evaluation. [facility] Past Medical History Medical History Depression Surgical History Surgical History No pertinent past surgical history Family History Family History Other No pertinent family history Social History Social History Smoking status: Never smoker Substance use: never Lack of Transportation: No Lack of Food: Never True Current Housing: I Have Housing Concerned About Future Housing: No Difficulty Paying Gas/Electric Bills: No Difficulty Paying for Meds: No Currently Unemployed: YES Education: High School Diploma/GED Difficulty w/ Childcare or Family Care: No Spiritual care concerns: No Exam Day of Procedure 09/02/22 08:21 Patient weight: normal Neurological: alert and oriented
[2022-09-02] MEDS: OXYTOCIN 30 UNITS/NS 500 ML 30 UNITS/500 ML BAG 125 UNITS IV CONT (10:45)
--- NOTE | 2022-09-02 10:54 | PM.OBPRVD ---
OB - Delivery Note Procedure Delivery date: 09/02/22 Procedure: Delivery augmentation: Rupture of Membranes and Pitocin Delivery monitor: External FHT and External Uterine Route of delivery: Laceration Description: None Specimen: No Quantitative Blood Loss (ml): 47 Anesthesia type: Epidural Disposition: Floor Narrative: mom and baby stable and doing skin to skin [place] Baby Date of : 09/02/22 Time of : 10:18 Weeks of gestation at delivery: 39 gender: Female presentation: vertex position: Left Occiput Anterior Placenta delivery description: Spontaneous Cord Vessel Description: 3 Vessels, Clamped/Cut and Delayed Cord Clamping score one minute: 9 score five minutes: 9
[2022-09-02] MEDS: miSOPROStol 200 MCG TABLET 1000 MCG RECTAL (11:00)
[2022-09-02 16:44] LABS: Rapid Plasma Reagin Non-Reactive (NonReactive)
[2022-09-02] MEDS: IBUPROFEN 600 MG TABLET PO (18:34)
[2022-09-03 04:21] VITALS: BP 129/76; PULSE 80; RESP 16; TEMP 36.6; O2SAT 99
[2022-09-03] MEDS: IBUPROFEN 600 MG TABLET PO ×3 (04:29→20:48)
[2022-09-03 04:53] LABS: Hematocrit 28.5 % (37.0-47.0); Hemoglobin 9.2 g/dL (12.0-15.0)
[2022-09-03 07:50] VITALS: BP 139/82; PULSE 82; RESP 16; TEMP 36.4; O2SAT 100
--- NOTE | 2022-09-03 08:18 | PM.OBPNVD ---
OB - PN: Subj Subjective Date/time seen: 09/03/22 08:18 Patient comments: no complaints baby status: doing well OB - PN: Obj Data Labs 09/03/22 04:26 Labs: Laboratory Results - last 24 hr 09/02/22 09/03/22 05:16 04:26 Hgb 9.2 L Hct 28.5 L RPR Non-reactive OB - PN A/P Plan day: 1 Plan: routine care Time Spent With Patient Time: Total time spent is greater than 50% in coordination of care (as documented) at patient's floor/unit and/or counseling patient: Time with patient: less than 15 minutes Review of Systems Review of Systems: All systems reviewed & are unremarkable except as noted in HPI and below Exam Narrative: Fundus firm and vaginal flow controlled. No lower ext redness, warmth, or edema. Negative homans. Const: General: comfortable Chest: Breast/axilla inspection: normal inspection of the breasts Resp: Effort & Inspection: normal respiratory effort Cardio: Rate: regular rate GI: GI Palp: Yes Soft to palpation Psych: Appearance: grossly normal Affect: normal affect Attitude: cooperative Thought content: Yes Normal thought content present Judgement: Good judgement present (Psych)
--- NOTE | 2022-09-03 08:20 | PM.OBDSVD ---
DS: Admitting Diagnosis Discharge Date 09/03/22 Admitting Diagnosis Induction of labor OB - DS: Summary OB Procedures : None OB Procedures Intrapartum: Spontaneous Vag Delivery OB Procedures: : None Time Spent with Patient Time attestation: Total time spent providing and/or coordinating discharge services: DS: Data Data Completed and Pending Labs on day of discharge: Labs from last 24 hours 09/03/22 09/02/22 04:26 05:16 Hgb 9.2 L Hct 28.5 L RPR Non-reactive Discharge Plan Discharge Attending physician on discharge: Kadie Upton Discharging Clinician: Ting Bartlett Patient Disposition: Home, Self-Care Activity: pelvic rest Diet: as tolerated Patient Instructions: Antibiotic Form Stand Alone Forms: General Discharge Information Follow-up/Referrals: Kadie Upton CNM [Primary Care Provider] - Discharge Medications: New polysaccharide iron complex 150 mg iron Capsule 150 mg PO BIDWM Qty: 60 0RF Discontinued ondansetron 4 mg tablet,disintegrating 4 mg PO Q8H Qty: 10 0RF Date of admission: 09/02/22 04:56 Primary Care Provider: Kadie Upton Admitting Provider: Aleksandr Ramirez Attending physician on admission: Aleksandr Ramirez Condition: Stable
[2022-09-03] MEDS: POLYSACCHARIDE IRON COMPLEX 150 MG CAPSULE PO ×2 (08:56→16:59)
[2022-09-03] MEDS: DOCUSATE SODIUM 100 MG CAPSULE PO ×2 (08:56→16:59)
[2022-09-03] MEDS: MULTIVIT/MIN/PREN/FOL AC/IRON TABLET 1 TAB PO (08:56)
[2022-09-03] MEDS: ACETAMINOPHEN 325 MG TABLET 650 MG PO ×2 (08:56→16:59)
--- NOTE | 2022-09-03 13:24 | WPDANLDPN2 ---
Anes-Prog Note L&D Date/Time: 09/03/22 13:24 Comfortable throughout: labor and delivery Neuraxial method: epidural Epidural/Spinal procedure site: tender Neuro status: Neuro function grossly intact. Cardiovascular status: normal Respiratory status: normal Airway patency: baseline Mental status: baseline Post-Op hydration status: normal Vital Signs: Last Vital Signs Temp 36.4 C L 09/03/22 07:50 Pulse 82 09/03/22 07:50 Resp 16 09/03/22 07:50 BP 139/82 09/03/22 07:50 Pulse Ox 100 09/03/22 07:50 O2 Del Method Room Air 09/03/22 07:45 Pain score (VAS): 3/10 I/O: Intake & Output 09/02/22 09/03/22 09/03/22 23:59 07:59 15:59 Intake Total 740 Balance 740 Post-procedural complaints: none Patient feedback: Patient satisfied with anesthetic care.
--- NOTE | 2022-09-03 14:15 | PC.NURSE ---
Breast pump provided due to maternal preference. Instructions given on cleaning, care, usage, that there should be no pain, pumping schedule for milk production, collection, and storage of human milk. Patient was assessed for correct placement, flange size, to pump for comfort and nipple stretching/stimulation for adequate milk production every 3 hours (8 times in 24 hours) 1-2 times at night.
[2022-09-03 20:10] VITALS: BP 127/78; PULSE 89; RESP 18; TEMP 36.7; O2SAT 99
[2022-09-04 07:05] VITALS: BP 124/81; PULSE 97; RESP 14; TEMP 36.9; O2SAT 100
--- NOTE | 2022-09-04 07:18 | PM.OBPNVD ---
OB - PN: Subj Subjective Date/time seen: 09/04/22 07:18 s/p vaginal delivery day 2 OB - PN: Obj Data Labs 09/03/22 04:26 OB - PN A/P Time Spent With Patient Time: Total time spent is greater than 50% in coordination of care (as documented) at patient's floor/unit and/or counseling patient:
--- NOTE | 2022-09-04 07:19 | PM.OBDSVD ---
DS: Admitting Diagnosis Discharge Date 09/04/22 Admitting Diagnosis IOL DS: Discharge Diagnosis Discharge Diagnosis (1) Vaginal delivery: Code(s): O80 - Encounter for full-term uncomplicated delivery Status: Acute OB - DS: Summary OB Procedures : None OB Procedures Intrapartum: Spontaneous Vag Delivery OB Procedures: : None Time Spent with Patient Time attestation: Total time spent providing and/or coordinating discharge services: Discharge Plan Discharge Attending physician on discharge: Aleksandr Ramirez Discharging Clinician: Kadie Upton Patient Disposition: Home, Self-Care Activity: pelvic rest Diet: as tolerated Patient Instructions: Antibiotic Form Stand Alone Forms: General Discharge Information Follow-up/Referrals: Kadie Upton CNM [Primary Care Provider] - Discharge Medications: New polysaccharide iron complex 150 mg iron Capsule 150 mg PO BIDWM Qty: 60 0RF Discontinued ondansetron 4 mg tablet,disintegrating 4 mg PO Q8H Qty: 10 0RF Date of admission: 09/02/22 04:56 Primary Care Provider: Kadie Upton Admitting Provider: Aleksandr aRmirez Attending physician on admission: Aleksandr Ramirez Condition: Stable
[2022-09-04] MEDS: MULTIVIT/MIN/PREN/FOL AC/IRON TABLET 1 TAB PO (07:48)
[2022-09-04] MEDS: POLYSACCHARIDE IRON COMPLEX 150 MG CAPSULE PO (07:48)
[2022-09-04] MEDS: IBUPROFEN 600 MG TABLET PO (07:48)
[2022-09-04] MEDS: DOCUSATE SODIUM 100 MG CAPSULE PO (07:48)
--- NOTE | 2022-09-04 08:29 | PC.NURSE ---
Patient viewed the discharge video Mother & Baby Care, The First Two Weeks . Patient was given the opportunity and encouraged to ask questions. Patient verbalized understanding of information shared and has been given the mother/baby guide for home reference.
--- NOTE | 2022-09-04 08:30 | PC.NURSE ---
On 09/04/22, the student,Benjamin Jacome, provided care and [facility]. I have reviewed the student's documentation and agree with the findings.
--- NOTE | 2022-09-04 13:53 | PC.NURSE ---
[id number] Introductions were made, then consulted with patient to assess needs related to . Mother led the conversation with her?plans to feed?her infant, the?experience so far of feeding since on 09/02. Resources provided for inpatient and outpatient services with the mom/baby guide. Mother voiced understanding of information and requests assistance since it has been 2-3 hours since the last feeding. Encouraged understanding of skin to skin (unwrapping and placing upright on her chest), stimulating with massage touch, changing positions to encourage wakefulness, how to watch for early feeding cues, responsive feeding, feeding on demand (aiming for 8-12 times in 24 hours, about every 2-3 hours), milk production, building/maintaining a milk supply, duration of feeding, signs of adequate intake/output and how to record on the feeding sheet. Reviewed positioning and ear, shoulder, hip alignment, supporting the breast to facilitate a deep latch, asymmetrical latch (off-center), leading with the chin with a big, open, wide gape and body close to mother. Infant latched optimally to the right breast in football position. Infant was unable to maintain latch for very long but there was no discomfort to mother. Mother was encouraged to practice to improve her comfort and milk supply. If there was discomfort mother voiced understanding to detached infant from the breast and another attempt was made. settled down to breastfeed after an attempt to latch after moving the milk down. Nipple care reviewed with optimal latch and good positioning. Reminding mother of comfort measures of healing with a warm and wet washcloth to rinse breast, then leave open to air-dry as needed and how to prevent mastitis. Reviewed good handwashing when or touching the breast/nipples to prevent infection. Mother was instructed to practice every 2 hours while awake and every 3 hours at night going 4 hours one time in a 24 hour period. 8-12 times in 24 hours. Reviewed if infant doesn't breastfeed, then she is to pump every 3 hours (8 times in 24 hours 1-2 times at night) and supplement with formula if infant skips two breast feedings. Resources used to facilitate learning were used with the mom and baby guide. Mother voiced understanding of skin to skin, stimulating with massage touch, responsive feedings, hand expressed colostrum, talking to to encourage if it has been 2 -2.5 hours since the start of the last . Reviewed signs of adequate intake, output, preventing an increase of jaundice, resources provided for inpatient/outpatient and when to call the ICP with the mom/baby guide. Parents voiced understanding of information, demonstrated learning and will call if there is a request for assistance.
[2022-09-05 11:18] VITALS: BP 134/83; PULSE 90; RESP 20; TEMP 37; O2SAT 99
== END 2022-09-04 10:40 | disposition home or self-care (01) | DRG 560 ==
LOC: ANHOB2 09-04 09:00 → ANHLDR 09-05 09:15 → ANHNUR2 09-05 09:15 → ANHOB2 09-05 09:15
PROVIDERS: Admitting Provider Advanced Practice Midwife; PCP Advanced Practice Midwife; Visit Provider Advanced Practice Midwife
DX: O36.8330 Maternal care for abnormalities of the fetal heart rate or rhythm, third trimester, not applicable or unspecified (principal); Z37.0 Single live birth; Z3A.39 39 weeks gestation of pregnancy
CPT/HCPCS: 36415; 85014; 85018; 85025; 86592; 86850; 86900; 86901; A9270; J2590; J2795; J3010; J7120